=== PATIENT | male | born 1960 | race Asian ===

== ENCOUNTER 2025-05-04 14:20 | Outpatient (RCR) | payer MEDICARE, SELFPAY ==
--- NOTE | 2025-05-10 01:13 | CTCFLWUP_ITS ---
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 He presents for follow-up and reports feeling good overall. Mr. Alfaro's AML was initially diagnosed in August 2023 after a near-syncopal episode revealed severe anemia, thrombocytopenia, and leukocytosis. He underwent treatment with hydroxyurea, azacitidine, and venetoclax, completing 7 cycles with the last one on January 28, 2024. Following treatment, he achieved complete response with bone marrow biopsies showing less than 5% blasts and eventually normal marrow with no blasts. The patient underwent a stem cell transplant last year in May, with his son serving as a 100% match donor. His day 100 biopsy showed no evidence of leukemia, indicating a complete response. A recent bone marrow biopsy in November 2024 showed 1% blasts, which is considered a good result. The patient reports no reactions to the bone marrow transplant and is currently not taking any immunosuppression medications, including tacrolimus. Mr. Alfaro has not experienced any significant symptoms or complications since his last visit. However, it was noted that he has not received his post- transplant vaccinations, which were supposed to start in November. He reports last visiting the clinic in November and has not followed up on the vaccination schedule since then. The patient continues to take acyclovir as prescribed but has not received his influenza vaccine or other recommended post-transplant vaccinations. He expresses willingness to proceed with the necessary vaccinations and catch up on the delayed schedule. Medications and Supplements - Allopurinol - Acyclovir - Patient confirms still taking - Azacitidine - Completed 7 cycles, last one on January 28, 2024 - Venetoclax - Completed 7 cycles, last one on January 28, 2024 - Tacrolimus 1 mg BID for 2 weeks, then 0.5 mg for 2 weeks - Discontinued. Patient confirms no longer taking Objective: Laboratory, Imaging, and Diagnostic Test Results - Date: 09/01/2023 - CBC: Hemoglobin 3.4 g/dL (severe anemia), Platelets 19K (thrombocytopenia), WBC 51,000 (leukocytosis) - Date: 09/02/2023 - Bone marrow biopsy: FLT3 mutation positive, confirmed acute myeloid leukemia - Date: 09/2023 - Bone marrow biopsy: Less than 5% blasts, negative for residual AML by morphology and flow - Date: 12/2023 - Bone marrow biopsy: Normal marrow with no blasts, FLT3 and TKD negative - Date: Post-transplant (specific date not mentioned) - Day 100 bone marrow biopsy: No evidence of leukemia - Date: 11/2024 - Bone marrow biopsy: 1% blasts - MRD: Negative - Chimerism: 100% donor DNA ONCOLOGY HISTORY: DIAGNOSIS: AML FLT 3: TKD: Positive Status post 6 cycles of Vidaza and venetoclax. Currently patient is undergoing fifth cycle of chemotherapy under Dr. Dionne Quevedo supervision. REASON FOR TODAY?S VISIT: This is office follow-up visit. Mr. Lawler is here at [facility] cancer [facility]. He completed 6 cycles of azacitidine on 03/16/2024. Currently he is taking venetoclax for another week. He has follow-up appointment with Dr. Dionne Quevedo on April 12, 2024. Mr. Lawler is going to be seen at [facility] in [place] for possible bone marrow transplantation on 03/25/2024. Today he is doing well. Denies any fevers or night sweats. Denies any cough, chest pain, abdominal pain or leg cramps. Ambulating well without any help. Has good appetite and good energy levels. Acute myeloblastic leukemia, in remission [ICD10] C92.01 DATE OF DIAGNOSIS: STAGE/TNM: TREATMENT HISTORY: Care?Plan Start?Date Cycle Day Intent Azacytadine?sq?d1-5,?8-9?AML 02/16/2024 1 Curative?(primary) Azacytadine?sq?d1-5,?8-9?AML 03/08/2024 1 28 Palliative HISTORY OF PRESENT ILLNESS: Dereje Lawler is a 65-year-old ENG speaking male with diagnosis of AML is currently being followed by Dr. Dionne Quevedo of [place]. He is getting Vidaza and venetoclax under her supervision. I was asked to follow Mr. Lawler here in town and slowly take over the chemotherapy due to transportation problems for the patient. The patient completed fifth cycle of Vidaza yesterday. He is currently on venetoclax which will be completed next week. The plan is to start him on 6 cycle of chemotherapy in about 3 weeks. For more information please look at the notes of Dr. Dionne Quevedo did not 01/22/2024. Mr. Lawler also had an episode of cardiac arrest thought to be secondary to prolonged QT caused by electrolyte abnormalities and Posaconazole. 09/12/2023: cycle 1: Azacitidine/venetoclax 11/11/2023: Cycle 2 of azacitidine/venetoclax. 12/09/2023: Cycle 3 of azacitidine and venetoclax. 01/06/2024: Cycle 4 of azacitidine and venetoclax. 02/02/2024: Cycle 5 of azacitidine venetoclax. 03/08/2024: Cycle 6 of azacitidine and venetoclax OTHER MEDICAL HISTORY/CONDITIONS: AML Diabetes HTN Craniotomy - subderal hematoma - 04/2019 - [facility] FAMILY HISTORY: Patient?denies?family?cancer?history. SOCIAL HISTORY: Occupational?History:?[employer] - currently on disabilty Education?Level:?Completed 11th grade Marital?Status:? Tobacco?Use:?Denies ETOH?Use:?Denies Drug?Note:?Denies Social?History?Note:?Lives?with? MEDICATIONS: 1. acyclovir - 400 mg 1 tab Twice a Day 2. magnesium chloride - 64 mg 2 tab Daily 3. metFORMIN - 500 mg 1 tab Daily 4. ZyrTEC - 10 mg 1 Capsule Daily Medications Last Reconciled by Ailyn Morales MA on 05/04/2025 ALLERGIES: No Known Drug Allergies REVIEW OF SYSTEMS: A complete 14-point review of systems was performed and is negative except as noted in interval history. PHYSICAL EXAMINATION: VITAL SIGNS: Temperature?98.4, B/P?119/69, Oxygen?Saturation?96% Weight?150?lbs PAIN: 0 - No pain ECOG Performance Status: 0 - Asymptomatic and fully active GENERAL APPEARANCE: Appears well, in no apparent distress, appropriately interactive. HEENT: Normocephalic, no temporal wasting, normal conjunctiva, no scleral icterus, normal hearing, lips without lesions, neck normal range of motion. CARDIOVASCULAR: Not assessed. PULMONARY: Normal respiratory effort, no respiratory distress or use of accessory muscles, speaking in full sentences, no tachypnea. EXTREMITIES: No pedal edema or cyanosis. SKIN: Normal skin appearance. NEUROLOGIC: Alert and oriented x4. PSHYCHIATRIC: Appropriate affect, mood normal, behavior normal, intact thought and speech. LABORATORY DATA: I have personally reviewed and interpreted each of the patient?s relevant lab tests, abnormal findings are below: Date 05/24/24 05/28/24 ??WHITE?BLOOD?COUNT?(Thou/mm3) 1.2?L 1.4?L ??RED?BLOOD?COUNT?(Miln/mm3) 2.98?L 3.01?L ??HEMOGLOBIN?(gm/dl) 10.2?L 10.3?L ??HEMATOCRIT?(%) 28.7?L 28.3?L ??PLATELET?COUNT?(Thou/mm3) 100?L 86?L ??NEUTROPHILS?%,?AUTO?(%) 40 33?L ??LYMPH?%,?AUTO?(%) 56?H 56?H ??NEUTROPHILS,?AUTO?(Thou/mm3) 0.5?L 0.5?L ??GLUCOSE,RANDOM?(mg/dL) ? 114?H ??BLOOD?UREA?NITROGEN?(mg/dL) ? 16 ??CREATININE?(mg/dL) ? 1.10 ??SODIUM?(mmol/L) ? 137 ??POTASSIUM?(mmol/L) ? 4.3 ??CHLORIDE?(mmol/L) ? 106 ??CrCl?(CandG)?(ml/min) ? 74.00 ??AST/SGOT?(Unit/L) ? 30 ??ALT/SGPT?(Unit/L) ? 71?H ??ALKALINE?PHOSPHATASE?(Unit/L) ? 76 ??BILIRUBIN,?TOTAL?(mg/dL) ? 0.3 ??PROTEIN?TOTAL?(gm/dl) ? 7.3 ??ALBUMIN,?SERUM?(gm/dl) ? 4.6 ??GLOBULIN?(gm/dl) ? 2.7 ??ALBUMIN/GLOBULIN?RATIO ? 1.7 ??CALCIUM,?SERUM?(mg/dL) ? 10.2 ??CALCIUM?SERUM?(CORRECTED)?(mg/dL) ? 10.2?H ??LDH,?TOTAL?(Unit/L) ? 186 ASSESSMENT/PLAN: Nuris Alfaro, male patient with a history of acute myeloid leukemia (AML), FLT3 positive, who underwent haploidentical allogeneic hematopoietic stem cell transplant in May 2024, presenting for follow-up. Acute Myeloid Leukemia (AML), FLT3 positive, post-allogeneic stem cell transplant Assessment: Patient with a history of AML, FLT3 positive, TKD positive, diagnosed in August 2023 after presenting with severe anemia, thrombocytopenia, and leukocytosis. He received initial treatment with hydroxyurea, followed by 7 cycles of azacitidine and venetoclax, achieving complete response. The patient underwent haploidentical allogeneic hematopoietic stem cell transplant on June 10, 2024. Day 100 post-transplant biopsy showed no evidence of leukemia. Most recent bone marrow biopsy in November 2024 showed 1% blasts, which is reassuring. The patient is currently MRD-negative with 100% donor DNA chimerism. No signs of [id number]-[id number] disease or rejection are noted, as the patient is not curr ently on immunosuppression. Plan: - Continue monitoring with regular follow-up appointments - Obtain report of day 180 bone marrow biopsy done in November 2024 - Implement post-transplant vaccination schedule: - Administer influenza vaccine - Order PCV13 (pneumococcal conjugate vaccine) - Schedule pneumonia 23 (pneumococcal polysaccharide vaccine) for 12 months post-transplant - Continue acyclovir prophylaxis - Arrange for patient to bring all post-transplant paperwork from [facility] to next appointment - Place orders for necessary vaccines - Consider referral to primary care or pharmacy for vaccine administration - Schedule a vaccination printed from online and extensively counseled patient regarding vaccination. Patient will follow-up with his primary care as well as vaccination clinic. Also advised to make a urgent appointment with the [facility] and inform them that he has not restarted vaccination as was previously recommended by [facility] last visit in November 2024. Patient will be started on vaccination schedule [place] ORDERS: Order # Description [id number] Follow Up 6 Month RETURN TO CLINIC: BILLING AND COMPLIANCE: I reviewed external records from providers outside my specialty as summarized above. I spent a total of 50 minutes on this patient?s care on the day of their visit excluding time spent related to any billed procedures. This time includes time spent with the patient as well as time spent documenting in the medical record, reviewing patients records and tests, obtaining history, placing orders, communicating with other healthcare professionals, counseling the patient, family or caregiver, and/or care coordination for the diagnoses above. Electronically Signed by: {Object.Sanct_ID*PnP.NameFL@M}, {Object.Sanct_ID*PnP.Suffix@U} D: {Object.Sanct_Date} T: {Object.Sanct_Time} CC: PCP: Noel Adams Referring: Noel Adams This document was completed utilizing speech recognition software. Grammatical errors, random word insertions, pronoun errors, and incomplete sentences are an occasional consequence of this system due to software limitations, ambient noise, and hardware issues. Any formal questions or concerns about the content, text or information contained within the body of this dictation should be directly addressed to the provider for clarification.
== END 2025-05-23 23:59 | disposition home or self-care (01) ==
LOC: SCTC 14:20
PROVIDERS: PCP Family Medicine; Referring Provider Family Medicine; Visit Provider Internal Medicine Hematology & Oncology
DX: C92.01 Acute myeloblastic leukemia, in remission (principal); Z94.84 Stem cells transplant status
CPT/HCPCS: 99212; G0463

== ENCOUNTER 2025-11-03 14:15 | Outpatient (RCR) | payer MEDICARE, SELFPAY ==
--- NOTE | 2025-11-27 22:57 | CTCFLWUP_ITS ---
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 He presents for follow-up and reports feeling good overall. Mr. Alfaro's AML was initially diagnosed in August 2023 after a near-syncopal episode revealed severe anemia, thrombocytopenia, and leukocytosis. He underwent treatment with hydroxyurea, azacitidine, and venetoclax, completing 7 cycles with the last one on January 28, 2024. Following treatment, he achieved complete response with bone marrow biopsies showing less than 5% blasts and eventually normal marrow with no blasts. The patient underwent a stem cell transplant last year in May, with his son serving as a 100% match donor. His day 100 biopsy showed no evidence of leukemia, indicating a complete response. A recent bone marrow biopsy in November 2024 showed 1% blasts, which is considered a good result. The patient reports no reactions to the bone marrow transplant and is currently not taking any immunosuppression medications, including tacrolimus. Mr. Alfaro has not experienced any significant symptoms or complications since his last visit. However, it was noted that he has not received his post- transplant vaccinations, which were supposed to start in November. He reports last visiting the clinic in November and has not followed up on the vaccination schedule since then. The patient continues to take acyclovir as prescribed but has not received his influenza vaccine or other recommended post-transplant vaccinations. He expresses willingness to proceed with the necessary vaccinations and catch up on the delayed schedule. Medications and Supplements - Allopurinol - Acyclovir - Patient confirms still taking - Azacitidine - Completed 7 cycles, last one on January 28, 2024 - Venetoclax - Completed 7 cycles, last one on January 28, 2024 - Tacrolimus 1 mg BID for 2 weeks, then 0.5 mg for 2 weeks - Discontinued. Patient confirms no longer taking Objective: Laboratory, Imaging, and Diagnostic Test Results - Date: 09/01/2023 - CBC: Hemoglobin 3.4 g/dL (severe anemia), Platelets 19K (thrombocytopenia), WBC 51,000 (leukocytosis) - Date: 09/02/2023 - Bone marrow biopsy: FLT3 mutation positive, confirmed acute myeloid leukemia - Date: 09/2023 - Bone marrow biopsy: Less than 5% blasts, negative for residual AML by morphology and flow - Date: 12/2023 - Bone marrow biopsy: Normal marrow with no blasts, FLT3 and TKD negative - Date: Post-transplant (specific date not mentioned) - Day 100 bone marrow biopsy: No evidence of leukemia - Date: 11/2024 - Bone marrow biopsy: 1% blasts - MRD: Negative - Chimerism: 100% donor DNA ONCOLOGY HISTORY: DIAGNOSIS: AML FLT 3: TKD: Positive Status post 6 cycles of Vidaza and venetoclax. Currently patient is undergoing fifth cycle of chemotherapy under Dr. Dionne Quevedo supervision. REASON FOR TODAY?S VISIT: This is office follow-up visit. Mr. Lawler is here at [facility] cancer Center. He completed 6 cycles of azacitidine on 03/16/2024. Currently he is taking venetoclax for another week. He has follow-up appointment with Dr. Dionne Quevedo on April 12, 2024. Mr. Lawler is going to be seen at [facility] in [place] for possible bone marrow transplantation on 03/25/2024. Today he is doing well. Denies any fevers or night sweats. Denies any cough, chest pain, abdominal pain or leg cramps. Ambulating well without any help. Has good appetite and good energy levels. Acute myeloblastic leukemia, in remission [ICD10] C92.01 DATE OF DIAGNOSIS: STAGE/TNM: TREATMENT HISTORY: Care?Plan Start?Date Cycle Day Intent Azacytadine?sq?d1-5,?8-9?AML 02/16/2024 1 Curative?(primary) Azacytadine?sq?d1-5,?8-9?AML 03/08/2024 1 28 Palliative HISTORY OF PRESENT ILLNESS: Dereje Lawler is a 65-year-old ENG speaking male with diagnosis of AML is currently being followed by Dr. Dionne Quevedo of [place]. He is getting Vidaza and venetoclax under her supervision. I was asked to follow Mr. Lawler here in town and slowly take over the chemotherapy due to transportation problems for the patient. The patient completed fifth cycle of Vidaza yesterday. He is currently on venetoclax which will be completed next week. The plan is to start him on 6 cycle of chemotherapy in about 3 weeks. For more information please look at the notes of Dr. Dionne Quevedo did not 01/22/2024. Mr. Lawler also had an episode of cardiac arrest thought to be secondary to prolonged QT caused by electrolyte abnormalities and Posaconazole. 09/12/2023: cycle 1: Azacitidine/venetoclax 11/11/2023: Cycle 2 of azacitidine/venetoclax. 12/09/2023: Cycle 3 of azacitidine and venetoclax. 01/06/2024: Cycle 4 of azacitidine and venetoclax. 02/02/2024: Cycle 5 of azacitidine venetoclax. 03/08/2024: Cycle 6 of azacitidine and venetoclax OTHER MEDICAL HISTORY/CONDITIONS: AML Diabetes HTN Craniotomy - subderal hematoma - 04/2019 - [facility] HISTORY: Patient?denies?family?cancer?history. SOCIAL HISTORY: Occupational?History:?[employer] - currently on disabilty Education?Level:?Completed 11th grade Marital?Status:? Tobacco?Use:?Denies ETOH?Use:?Denies Drug?Note:?Denies Social?History?Note:?Lives?with? MEDICATIONS: 1. acyclovir - 400 mg 1 tab Twice a Day 2. magnesium chloride - 64 mg 2 tab Daily 3. metFORMIN - 500 mg 1 tab Daily Medications Last Reconciled by Ailyn Cortes MD on 11/03/2025 ALLERGIES: No Known Drug Allergies REVIEW OF SYSTEMS: A complete 14-point review of systems was performed and is negative except as noted in interval history. PHYSICAL EXAMINATION: VITAL SIGNS: Temperature?97.6, B/P?126/78, Oxygen?Saturation?98% Weight?167?lbs PAIN: 0 - No pain ECOG Performance Status: 0 - Asymptomatic and fully active GENERAL APPEARANCE: Appears well, in no apparent distress, appropriately interactive. HEENT: Normocephalic, no temporal wasting, normal conjunctiva, no scleral icterus, normal hearing, lips without lesions, neck normal range of motion. CARDIOVASCULAR: Not assessed. PULMONARY: Normal respiratory effort, no respiratory distress or use of accessory muscles, speaking in full sentences, no tachypnea. EXTREMITIES: No pedal edema or cyanosis. SKIN: Normal skin appearance. NEUROLOGIC: Alert and oriented x4. PSHYCHIATRIC: Appropriate affect, mood normal, behavior normal, intact thought and speech. LABORATORY DATA: I have personally reviewed and interpreted each of the patient?s relevant lab tests, abnormal findings are below: Date 05/24/24 05/28/24 ??WHITE?BLOOD?COUNT?(Thou/mm3) 1.2?L 1.4?L ??RED?BLOOD?COUNT?(Miln/mm3) 2.98?L 3.01?L ??HEMOGLOBIN?(gm/dl) 10.2?L 10.3?L ??HEMATOCRIT?(%) 28.7?L 28.3?L ??PLATELET?COUNT?(Thou/mm3) 100?L 86?L ??NEUTROPHILS?%,?AUTO?(%) 40 33?L ??LYMPH?%,?AUTO?(%) 56?H 56?H ??NEUTROPHILS,?AUTO?(Thou/mm3) 0.5?L 0.5?L ??GLUCOSE,RANDOM?(mg/dL) ? 114?H ??BLOOD?UREA?NITROGEN?(mg/dL) ? 16 ??CREATININE?(mg/dL) ? 1.10 ??SODIUM?(mmol/L) ? 137 ??POTASSIUM?(mmol/L) ? 4.3 ??CHLORIDE?(mmol/L) ? 106 ??CrCl?(CandG)?(ml/min) ? 74.00 ??AST/SGOT?(Unit/L) ? 30 ??ALT/SGPT?(Unit/L) ? 71?H ??ALKALINE?PHOSPHATASE?(Unit/L) ? 76 ??BILIRUBIN,?TOTAL?(mg/dL) ? 0.3 ??PROTEIN?TOTAL?(gm/dl) ? 7.3 ??ALBUMIN,?SERUM?(gm/dl) ? 4.6 ??GLOBULIN?(gm/dl) ? 2.7 ??ALBUMIN/GLOBULIN?RATIO ? 1.7 ??CALCIUM,?SERUM?(mg/dL) ? 10.2 ??CALCIUM?SERUM?(CORRECTED)?(mg/dL) ? 10.2?H ??LDH,?TOTAL?(Unit/L) ? 186 ASSESSMENT/PLAN: Nuris Alfaro, male patient with a history of acute myeloid leukemia (AML), FLT3 positive, who underwent haploidentical allogeneic hematopoietic stem cell transplant in May 2024, presenting for follow-up. Acute Myeloid Leukemia (AML), FLT3 positive, post-allogeneic stem cell transplant Assessment: Patient with a history of AML, FLT3 positive, TKD positive, diagnosed in August 2023 after presenting with severe anemia, thrombocytopenia, and leukocytosis. He received initial treatment with hydroxyurea, followed by 7 cycles of azacitidine and venetoclax, achieving complete response. The patient underwent haploidentical allogeneic hematopoietic stem cell transplant on June 10, 2024. Day 100 post-transplant biopsy showed no evidence of leukemia. Most recent bone marrow biopsy in November 2024 showed 1% blasts, which is reassuring. The patient is currently MRD-negative with 100% donor DNA chimerism. No signs of [id number] disease or rejection are noted, as the patient is not curr ently on immunosuppression. Plan: - Continue monitoring with regular follow-up appointments with the transplant team Follow-up with us on as needed basis ORDERS: Order # Description [id number] Follow Up 2 Months + Comprehensive Metabolic Panel - 12 + CBC with Auto Diff [id number] Lactate Dehydrogenase (LDH) [id number] Uric Acid, Serum RETURN TO CLINIC: I reviewed the diagnosis, prognosis, and recommended treatment/procedure options with the patient (and/or their legal paper sales representative), including the potential benefits, risks, side effects and alternative therapies. We also discussed the option of no treatment and the possibility of clinical trial participation, if applicable. All questions were addressed, and they demonstrated understanding. They provided informed consent to proceed with the proposed plan of care. BILLING AND COMPLIANCE: I reviewed external records from providers outside my specialty as summarized above. I spent a total of 50 minutes on this patient?s care on the day of their visit excluding time spent related to any billed procedures. This time includes time spent with the patient as well as time spent documenting in the medical record, reviewing patients records and tests, obtaining history, placing orders, communicating with other healthcare professionals, counseling the patient, family or caregiver, and/or care coordination for the diagnoses above. Electronically Signed by: {Object.Sanct_ID*PnP.NameFL@M}, {Object.Sanct_ID*PnP.Suffix@U} D: {Object.Sanct_Date} T: {Object.Sanct_Time} CC: PCP: Noel Adams Referring: Noel Adams This document was completed utilizing speech recognition software. Grammatical errors, random word insertions, pronoun errors, and incomplete sentences are an occasional consequence of this system due to software limitations, ambient noise, and hardware issues. Any formal questions or concerns about the content, text or information contained within the body of this dictation should be directly addressed to the provider for clarification.
== END 2025-11-23 23:59 | disposition home or self-care (01) ==
LOC: SCTC 14:15
PROVIDERS: PCP Family Medicine; Referring Provider Family Medicine; Visit Provider Internal Medicine Hematology & Oncology
DX: C92.01 Acute myeloblastic leukemia, in remission (principal); Z94.84 Stem cells transplant status
CPT/HCPCS: 99212; G0463